=== PATIENT | male | born 1940 | race African-American/Black ===

== ENCOUNTER → 2024-11-17 | Outpatient (CLI) | payer MEDICARE, SELFPAY ==
--- NOTE | 2024-11-17 15:32 | RAD_ITS ---
PROCEDURE: CERV SPINE OBL/FLEX/EXT COMP 11/17/2024 REASON FOR EXAM: CHRONIC NECK PAIN, HEADACHES TECHNIQUE: 7 view cervical spine series including flexion extension lateral images were obtained. COMPARISON: None. FINDINGS: There are no compression fractures or subluxations. There is loss of the normal cervical lordosis. There is degenerative disc disease, C3-4 through C7-T1 with narrowing of the intervertebral disc spaces and marginal osteophytes. There are large anterior osteophytes, C3-4 through C5-6. There is mild multilevel facet arthropathy without spondylolisthesis. There is no instability with flexion and extension. The paravertebral soft tissues are normal. RAD/Cerv Spine Obl/Flex/Ext Comp IMPRESSION: 1. Multilevel facet arthropathy with cervical spasm. 2. No evidence of spondylolisthesis or instability with flexion and extension. Reading Location: [id number]
== END | disposition home or self-care (01) ==
LOC: MTRAD 15:30
PROVIDERS: Referring Provider Anesthesiology Pain Medicine; Visit Provider Anesthesiology Pain Medicine
DX: M54.2 Cervicalgia (principal); G89.29 Other chronic pain
CPT/HCPCS: 72052